=== PATIENT | male | born 1945 | race Caucasian/White ===

== ENCOUNTER 2016-10-12 18:11 | Inpatient (IN) | payer OTHER, MEDICAID ==
[~2016-10-12] VITALS: Ht 162.6 cm; Wt 88.9 kg
[~2016-10-12 18:11] MED LIST: DOCU50CA3 PO; LANS30CA10 PO
[2016-10-12 18:15] VITALS: BP 210/109; PULSE 109; RESP 22; TEMP 98.5; O2SAT 97
--- NOTE | 2016-10-12 18:15 | NUR ---
Placed in room 4. Placed on monitoring analyst, blood pressure machine and pulse oximeter. To gown for exam. Side rails up. Report given to Jv DEAL.
--- NOTE | 2016-10-12 18:18 | NUR ---
ER Dr. Kennedy at bedside examining patient.
[2016-10-12] MEDS ORDERED: cefTRIAXone 1 GM IVPB PREMIX 50 ML IV ONE (18:30)
[2016-10-12] MEDS ORDERED: IPRATROPIUM BROM 0.5 MG/2.5 ML VIAL.NEB (ATROVENT) IH ONE (18:30)
[2016-10-12] MEDS ORDERED: ALBUTEROL SULFATE 0.083% 2.5 MG/3 ML VIAL.NEB IH ONE (18:30)
--- NOTE | 2016-10-12 18:30 | NUR ---
Pt brought in by grey washer complaint of SOB and cough.Pt diminished lung sounds through out.Pt AO x 2, verbal, able to make needs known.Generalized non-pitting edma all extermities noted.
--- NOTE | 2016-10-12 18:35 | NUR ---
Seizure precautions in place. Seizure pads applied to gurney. Side rails up. Seizure pads in place per hx.
[2016-10-12] MEDS ORDERED: ALBMDI INH (18:44)
[2016-10-12] MEDS ORDERED: PROP10DR2 EACH EYE (18:44)
[2016-10-12] MEDS ORDERED: LEVE500T13 PO (18:44)
[2016-10-12] MEDS ORDERED: CALC-226 PO (18:44)
[2016-10-12] MEDS ORDERED: THOR25 PO (18:44)
[2016-10-12] MEDS ORDERED: BIMA2.5D5 OP (18:44)
[2016-10-12] MEDS ORDERED: SOLI5TAB6 PO (18:44)
[2016-10-12] MEDS ORDERED: VALS160T2 PO (18:44)
[2016-10-12] MEDS ORDERED: HYDC.5% TP (18:44)
[2016-10-12] MEDS ORDERED: MULT PO (18:44)
[2016-10-12] MEDS ORDERED: FINA5TAB3 PO (18:44)
[2016-10-12] MEDS ORDERED: IBUP-1969 PO (18:44)
[2016-10-12] MEDS ORDERED: LORA1TAB PO (18:44)
[2016-10-12] MEDS ORDERED: PROC5TAB PO (18:44)
[2016-10-12] MEDS ORDERED: TAMS-11 PO (18:44)
[2016-10-12] MEDS ORDERED: TRIA80OI TP (18:44)
--- NOTE | 2016-10-12 18:44 | NUR ---
Medication reconciliation completed with information provided by paperwork from facility. Any prior medication reconciliation on file was reviewed and corrected.
[2016-10-12] MEDS ORDERED: FUROSEMIDE 100 MG/10 ML VIAL IVP ONE (19:00)
[2016-10-12 19:05] LABS: BASOPHILS # (AUTO) 0.1 K/uL (0.0-0.2); BASOPHILS % (AUTO) 1.1 % (0.0-2.0); EOSINOPHILS # (AUTO) 0.4 K/uL (0.0-0.4); EOSINOPHILS % (AUTO) 3.6 % (0.0-4.0); HEMATOCRIT 45.3 % (36-54); HEMOGLOBIN 15.6 g/dL (14.0-18.0); LYMPHOCYTES # (AUTO) 2.3 K/uL (1.0-5.5); LYMPHOCYTES % (AUTO) 18.9 % (20.5-51.5); MEAN CORPUSCULAR HEMOGLOBIN 29 pg (27-31); MEAN CORPUSCULAR HGB CONC 34 % (32-36); MEAN CORPUSCULAR VOLUME 85 fL (79.0-98.0); MONOCYTES % (AUTO) 8.1 % (1.7-9.3); NEUTROPHILS # (AUTO) 8.1 K/uL (1.8-7.7); NEUTROPHILS % (AUTO) 68.3 % (40.0-70.0); PLATELET COUNT (AUTO) 226 K/uL (130-430); RED BLOOD CELL COUNT(AUTO) 5.34 MIL/uL (4.2-6.2); RED CELL DISTRIBUTION WIDTH 13.4 % (9.0-15.0); WHITE BLOOD COUNT (AUTO) 11.9 K/uL (4.8-10.8)
[2016-10-12 19:16] LABS: CREATININE 1.17 mg/dL (0.55-1.30); POTASSIUM 4.1 mmol/L (3.5-5.1)
[2016-10-12] MEDS: NS 500 ML IV SCH ×2 (19:16→19:32)
--- NOTE | 2016-10-12 19:17 | NUR ---
Endorsed all care SAY Sullivan
[2016-10-12] MEDS ORDERED: DILTIAZEM HCL 25 MG/5 ML VIAL IVP ONE (19:30)
[2016-10-12] MEDS ORDERED: NS 500 ML IV ONE (19:30)
[2016-10-12] MEDS ORDERED: ASPIRIN 81 MG TAB.CHEW PO ONE (19:30)
--- NOTE | 2016-10-12 19:45 | NUR ---
Chacon cath refused by caregiver. Addendum: 10/12/16 at 2014 by LOCURRY Pt's career development specialist did what chacon cath to be insert. # 16 FR Chacon catheter with use of sterile technique. Immediate return of 200 cc clear urine noted. Bedside drainage bag placed below level of bladder. Urine sample collected and sent to lab. Pt tolerated procedure well. Patient unable to toilet self.
[2016-10-12 20:00] LABS: BILIRUBIN,URINE NEGATIVE (NEGATIVE); BLOOD, URINE 2+ (NEGATIVE); CLARITY/URINE HAZY (CLEAR); COLOR,URINE YELLOW (YELLOW); GLUCOSE,URINE NEGATIVE (NEGATIVE); KETONES,URINE NEGATIVE (NEGATIVE); LEUKOCYTE ESTERASE ,URINE 3+ (NEGATIVE); NITRITE, URINE NEGATIVE (NEGATIVE); PROTEIN URINE NEGATIVE (NEGATIVE); UROBILINOGEN,URINE 0.2 (0.2-1.0)
[2016-10-12 20:14] LABS: BACTERIA,URINE MODERATE /HPF (None Seen)
--- NOTE | 2016-10-12 20:25 | NUR ---
ADMISSION NOTE Received patient from ER via gurney under the care of Dr Wood. Patient admitted with diagnosis of Pneumonia. Patient is awake, alert, oriented X4 . Patient oriented to hospital room, call light, toileting, pain management and safety-teach back done. Patient informed that his nurse will be Elisa DEAL and that his room number is 101A. Call light within reach. Will continue to monitor.
--- NOTE | 2016-10-12 20:30 | NUR ---
Patient will be admitted to care of Dr Wood. Admitted to Med/Surg unit. Will go to room 101A. Belongings list completed. Summary report printed. Report given to Henok DEAL .
[2016-10-12 20:32] VITALS: BP 151/90; PULSE 110; RESP 20; TEMP 98.6; O2SAT 95
--- NOTE | 2016-10-12 20:35 | NUR ---
pt.recieved.pt.presents lower exttremity weakness.pt.presents degress exopressive asphasia.mental retardation. chacon catheter.ski intact;redness to backsacrum/coccyx;clean no skin breakdown.iv access x2 :rt.hand/lt.hand. 2 f/u w.iv fluids ivpb;abx. Addendum: 10/13/16 at 0650 by Henok Chang RN o2 sat%=96%@room air.no sob manifested.
[2016-10-12] MEDS ORDERED: LEVOFLOXACIN 500 MG/D5W 100 ML IV ONE ×2 (21:00→21:24)
[2016-10-12] MEDS ORDERED: PIPERACILLIN/TAZO 3.375 GM in NS 50 ML IV ONE (21:00)
[2016-10-12] MEDS ORDERED: PIPERACILLIN/TAZOBACTAM 3.375 GM/VIAL (ZOSYN) IV ONE ×2 (21:24→23:46)
[2016-10-12] MEDS: D5/0.45 NS 1,000 ML IV SCH (21:42)
[2016-10-12] MEDS ORDERED: IPRATROPIUM/ALBUTEROL SULFATE 3 ML AMPUL.NEB INH ONE (22:00)
--- NOTE | 2016-10-12 22:00 | NUR ---
pt.repsoitoned.iv lock:iv extention applied 2 rt.hand/lt hand.pt prersents quiescent affect.calm,asleep. Addendum: 10/13/16 at 0651 by Henok Chang RN o2 sat%=96%@room air.no sob manifested. Addendum: 10/13/16 at 0654 by Henok Chang RN iv fluids:d5/45ns @75ml/hr initiated.initial ivpb:abx:beatrice rivas.
[2016-10-12 22:30] VITALS: BP 160/76; PULSE 116
[2016-10-12 23:59] VITALS: BP 156/90; PULSE 98; RESP 18; TEMP 97.5; O2SAT 94
--- NOTE | 2016-10-13 | NUR ---
pt.assessed.pt.repositioned.iv fluids infusing.abx:infused.call light placed w/in pt's reach. Addendum: 10/13/16 at 0649 by Henok Chang RN o2 sat%=96%@room air.no sob manifested.
--- NOTE | 2016-10-13 02:00 | NUR ---
pt.assessed.pt.repositioned.iv fluids infusing.call light placed w/in pt's reach.no distress/discomfort manifested. call light placed w/in pt's reach.
--- NOTE | 2016-10-13 04:00 | NUR ---
pt.repsoitioned.v/s assessed:values w/in normal values:zosyn:abx/ivpb administered.rodriguez light placed w/in pt's reach. no distress/discomfort manifested.call light placed w/in pt's reach. Addendum: 10/13/16 at 0649 by Henok Chang RN o2 sat %=96% @ room air. Addendum: 10/13/16 at 0650 by Henok Chang RN no sob manifested.
[2016-10-13 04:08] VITALS: BP 142/79; PULSE 87; RESP 18; TEMP 97.2; O2SAT 94
[2016-10-13] MEDS: PIPERACILLIN/TAZO 3.375/DEX-IS 50 ML IV SCH ×4 (04:40→22:03)
[2016-10-13] MEDS: IPRATROPIUM/ALBUTEROL SULFATE 3 ML AMPUL.NEB INH SCH ×5 (06:01→23:00)
--- NOTE | 2016-10-13 06:15 | NUR ---
pt.assessed.pt.repositioned.no distress/discomfort manifested.iv fluids infusing.call light placed w/in pt's reach.
[2016-10-13 07:17] LABS: BASOPHILS # (AUTO) 0.1 K/uL (0.0-0.2); BASOPHILS % (AUTO) 1.2 % (0.0-2.0); EOSINOPHILS # (AUTO) 0.3 K/uL (0.0-0.4); EOSINOPHILS % (AUTO) 2.9 % (0.0-4.0); HEMATOCRIT 40.5 % (36-54); HEMOGLOBIN 13.4 g/dL (14.0-18.0); LYMPHOCYTES # (AUTO) 1.7 K/uL (1.0-5.5); LYMPHOCYTES % (AUTO) 18.6 % (20.5-51.5); MEAN CORPUSCULAR HEMOGLOBIN 29 pg (27-31); MEAN CORPUSCULAR HGB CONC 33 % (32-36); MEAN CORPUSCULAR VOLUME 87 fL (79.0-98.0); MONOCYTES % (AUTO) 11.3 % (1.7-9.3); PLATELET COUNT (AUTO) 225 K/uL (130-430); RED BLOOD CELL COUNT(AUTO) 4.65 MIL/uL (4.2-6.2); RED CELL DISTRIBUTION WIDTH 13.4 % (9.0-15.0); WHITE BLOOD COUNT (AUTO) 9.1 K/uL (4.8-10.8)
[2016-10-13 07:27] LABS: CALCIUM 8.3 mg/dL (8.4-11.0); POTASSIUM 3.5 mmol/L (3.5-5.1)
[2016-10-13 07:28] LABS: ALBUMIN 3.1 g/dL (3.4-4.8); CREATININE 1.13 mg/dL (0.55-1.30); TOTAL BILIRUBIN 0.4 mg/dL (0.0-1.0)
[2016-10-13 08:00] VITALS: BP 122/97; PULSE 90; RESP 19; TEMP 96.8; O2SAT 97
--- NOTE | 2016-10-13 08:00 | NUR ---
initial notes rec patient asleep but arousable to stimuli.pt with mental retardation but very pleasant. awake alert with hob slightly elevated. resp easy and unlabored with o2 at 2 liters via nasal cannula.no sob noted. bed in low position and side rails up and locked. call light within reached and knows when to call for assistance.
[2016-10-13] MEDS ORDERED: LORazepam 1 MG TABLET PO SCH (09:00)
--- NOTE | 2016-10-13 10:00 | NUR ---
rounds due meds was crushed and given to patient with pudding and ashley well. no sob noted. turned repositioned for comfort.
[2016-10-13] MEDS: MULTIVITAMINS TAB 1 TABLET PO SCH (10:05)
[2016-10-13] MEDS: DOCUSATE SODIUM 100 MG CAPSULE PO SCH (10:06)
[2016-10-13] MEDS: PANTOPRAZOLE SODIUM 40 MG TAB PO SCH (10:06)
[2016-10-13] MEDS: levETIRAcetam 500 MG TABLET PO SCH ×2 (10:06→21:55)
[2016-10-13] MEDS: OXYBUTYNIN CHLORIDE 5 MG TABLET PO SCH ×3 (10:06→22:03)
[2016-10-13] MEDS: THORAZINE (chlorproMAZINE) 25 MG TAB PO SCH ×2 (10:06→21:55)
[2016-10-13] MEDS: CALCIUM CARBONATE/VITAMIN D3 1 TAB TABLET PO SCH (10:06)
[2016-10-13] MEDS: VALSARTAN 160 MG TABLET (DIOVAN) PO SCH (10:07)
[2016-10-13] MEDS: PROCHLORPERAZINE MALEATE 5 MG TABLET PO SCH (10:08)
--- NOTE | 2016-10-13 10:24 | NUR ---
Nutrition Update Donnie Scale 12 noted. Pt admitted for pneumonia. Diet: mechanical soft BMI: 33.7 kg/m2 RD to follow per nutrition care standards.
[2016-10-13 11:57] VITALS: Ht 162.6 cm; Wt 88.9 kg
--- NOTE | 2016-10-13 12:00 | NUR ---
rounds was fed [facility] [place] [facility] and with good appetite. due meds given. no acute distress noted.
[2016-10-13 12:02] VITALS: BP 118/65; PULSE 107; RESP 18; TEMP 97.9; O2SAT 93
--- NOTE | 2016-10-13 14:00 | NUR ---
rounds sleeping when rounds made. no sob noted.
[2016-10-13] MEDS: FINASTERIDE 5 MG TABLET (PROSCAR) PO SCH (14:18)
[2016-10-13] MEDS: D5/0.45 NS 1,000 ML IV SCH (14:21)
--- NOTE | 2016-10-13 15:56 | NUR ---
SMirtaT. SWALLOW SMILEYAL COMPLETED THIS AM. PT PRESENTS W/ ML-MOD ORAL DYSPHAGIA W/ PROLONGED MASTICATION D/T SCATTERED DENTITION. NO S/S OF ASPIRATION. REC: [facility] SOFT FINELY CHOPPED DIET. NURSE BROCK NOTIFIED. [id number] CJ [id number] CJ [id number] CJ NOMS LEVEL 5
--- NOTE | 2016-10-13 16:00 | NUR ---
rounds seen by dr bianchi and with orders. sleeps at intervals. no acute distress noted.
[2016-10-13 16:28] VITALS: BP 160/76; PULSE 106; RESP 20; TEMP 98.7; O2SAT 98
--- NOTE | 2016-10-13 17:19 | NUR ---
Nutrition Consult Nutrition Consult (Donnie Score of 12) received 10/13/16 2016. Pt was seen and assessed by RD on 10/13/16. Please see Nutrition Assessment for details. RD to continue to follow per nutrition care standards.
[2016-10-13] MEDS: TEARS ARTIFICIAL 15 ML DROPS OP SCH ×2 (17:45→21:54)
--- NOTE | 2016-10-13 18:40 | NUR ---
closing notes pt was fed and with a good appetite. no sob noted. needs attended, stable. bed in low position and side rails up and locked.
--- NOTE | 2016-10-13 19:10 | NUR ---
OPENING NOTES REPORT RECEIVED FROM DAY SHIFT NURSE AT BEDSIDE. NO SIGNS OR SYMPTOMS OF DISTRESS NOTED, PATIENT RESTING COMFORTABLY. BED IN LOWEST POSITION, BED ALARM ON, CALL LIGHT WITHIN REACH WILL CONTINUE TO MONITOR.
[2016-10-13 19:45] VITALS: BP 147/73; PULSE 105; RESP 20; TEMP 98.8; O2SAT 97
--- NOTE | 2016-10-13 19:45 | NUR ---
CT PATIENT TAKEN TO CT
--- NOTE | 2016-10-13 20:22 | NUR ---
RETURN FROM CT PATIENT RETURNED FROM CT. PATIENT RESTING COMFORTABLY. BED IN LOWEST POSITION. ALARM ON, CALL LIGHT WITHIN REACH. WILL CONTINUE TO MONITOR.
[2016-10-13] MEDS: LATANOPROST 2.5 ML DROPS (XALATAN) OP SCH (21:00)
[2016-10-13] MEDS ORDERED: COMMUNICATION ORDER XX ONE (21:00)
[2016-10-13] MEDS: TAMSULOSIN HCL 0.4 MG CAP PO SCH (21:55)
[2016-10-13] MEDS: LORazepam 1 MG TABLET PO SCH (22:02)
--- NOTE | 2016-10-13 22:30 | NUR ---
D/C MATA CATHETER 10CC FLUID REMOVED FROM BALLOON, MATA CATHETER D/C PER ORDERS. NO COMPLICATIONS NOTED AT THIS TIME. PATIENT TOLERATED WELL. URINAL AT BEDSIDE, PATIENT VERBALIZED WILL CALL FOR HELP TO HOLD THE URINAL. WILL MONITOR FOR URINE OUTPUT.
[2016-10-13] MEDS: LEVOFLOXACIN 500 MG/D5W 100 ML IV SCH (22:38)
--- NOTE | 2016-10-13 23:30 | NUR ---
SEIZURE PRECAUTIONS SEIZURE PADDING PUT IN PLACE, SUCTION CANISTER WITH YONKER AT BEDSIDE IN WORKING ORDER.
[2016-10-14 00:48] VITALS: BP 133/85; PULSE 107; RESP 16; TEMP 98; O2SAT 94
--- NOTE | 2016-10-14 01:30 | NUR ---
ROUNDS PATIENT SLEEPING, VISIBLE RISE AND FALL OF CHEST. NO SIGNS OR SYMPTOMS OF DISTRESS NOTED. BED IN LOWEST POSITION, BED ALARM ON, CALL LIGHT WITHIN REACH. FALL, SEIZURE, AND ASPIRATION PRECAUTIONS IN PLACE. WILL CONTINUE TO MONITOR
--- NOTE | 2016-10-14 02:47 | NUR ---
voided assisted pt with urinal. pt voided 260 yellow urine. will continue to monitor. all needs being met. bed in low position, call light within reach.
[2016-10-14] MEDS: IPRATROPIUM/ALBUTEROL SULFATE 3 ML AMPUL.NEB INH SCH ×6 (03:00→23:32)
[2016-10-14 04:00] VITALS: BP 106/56; PULSE 89; RESP 18; TEMP 97; O2SAT 95
[2016-10-14] MEDS: PIPERACILLIN/TAZO 3.375/DEX-IS 50 ML IV SCH ×4 (04:29→21:56)
--- NOTE | 2016-10-14 04:36 | NUR ---
ROUNDS PATIENT ASSISTED WITH URINAL, PATIENT VOIDED 50ML URINE. BED IN LOWEST POSITION, CALL LIGHT WITHIN REACH, BED ALARM ON.
--- NOTE | 2016-10-14 05:30 | NUR ---
VOIDED NOTED PT VOIDED ON HIS GOWN WHILE TRYING TO REACH URINAL. I ASSISTED HIM TO THE URINAL AND WAS ABLE TO COLLECT 100ML. CHANGED PT'S WET GOWN AND BLANKET. ALL NEEDS BEING MET.
--- NOTE | 2016-10-14 06:27 | NUR ---
CLOSING NOTES PATIENT RESTING COMFORTABLY. NO SIGNS OR SYMPTOMS OF DISTRESS NOTED. SEIZURE, FALL, AND ASPIRATION PRECAUTIONS IN PLACE. ALL NEEDS MET THROUGH SHIFT. BED IN LOWEST POSITION, BED ALARM ON, CALL LIGHT WITHIN REACH. WILL ENDORSE CARE TO DAY SHIFT NURSE.
[2016-10-14] MEDS: D5/0.45 NS 1,000 ML IV SCH ×2 (06:57→13:15)
--- NOTE | 2016-10-14 06:59 | NUR ---
VOIDED ASSISTED PATIENT AT BEDSIDE WITH URINAL, OUTPUT 220ML.
[2016-10-14 08:00] VITALS: BP 120/60; PULSE 98; RESP 18; TEMP 96; O2SAT 97
--- NOTE | 2016-10-14 08:00 | NUR ---
initial notes rec patient awake and with hob elevated. ivf infusing well on the l hand. no infiltration noted. obese resp easy and unlabored. with o2 at 2 liters via nasal cannula. bed in low position and side rail up and locked. call light provided and knows when to call for help.
[2016-10-14] MEDS: DOCUSATE SODIUM 100 MG CAPSULE PO SCH (09:51)
[2016-10-14] MEDS: THORAZINE (chlorproMAZINE) 25 MG TAB PO SCH ×2 (09:51→20:51)
[2016-10-14] MEDS: levETIRAcetam 500 MG TABLET PO SCH ×2 (09:51→20:51)
[2016-10-14] MEDS: PANTOPRAZOLE SODIUM 40 MG TAB PO SCH (09:51)
[2016-10-14] MEDS: MULTIVITAMINS TAB 1 TABLET PO SCH (09:51)
[2016-10-14] MEDS: PROCHLORPERAZINE MALEATE 5 MG TABLET PO SCH (09:52)
[2016-10-14] MEDS: LORazepam 1 MG TABLET PO SCH ×2 (09:52→20:54)
[2016-10-14] MEDS: TRIAMCINOLONE ACETONIDE 0.1% 15 GM CREAM.GM. TP SCH ×2 (09:53→20:51)
[2016-10-14] MEDS: TEARS ARTIFICIAL 15 ML DROPS OP SCH ×3 (09:54→20:52)
--- NOTE | 2016-10-14 10:00 | NUR ---
rounds seen by dr arias orozco and with orders. no sob noted.
--- NOTE | 2016-10-14 10:00 | NUR ---
Rounds and IV reinsertion A/O x 3, no SOB, no chest pain, denied pain. Skin warm to touch, noted IV at L hand got pullout, and R hand infiltrated. Started a new IV #22 at R FA with good blood return. DC IV from R hand, both IV catheters intact. Patient tolerated whole procedure well. Patient resting in bed. Side rail padded, bed at lowest position, call light within reach, will continue to monitor patient. Addendum: 10/15/16 at 0021 by Sebastian Meza RN wrong time entry. EDUIN DEAL
[2016-10-14] MEDS: FINASTERIDE 5 MG TABLET (PROSCAR) PO SCH (10:04)
[2016-10-14] MEDS: CALCIUM CARBONATE/VITAMIN D3 1 TAB TABLET PO SCH (10:05)
[2016-10-14] MEDS: OXYBUTYNIN CHLORIDE 5 MG TABLET PO SCH ×3 (10:05→20:51)
--- NOTE | 2016-10-14 12:00 | NUR ---
rounds pt was assisted with the urinal and ashley well. wets the bed at intervals and total bed changed done. pt ate and with good appetite. no acute distress noted.
[2016-10-14 12:27] VITALS: BP 140/94; PULSE 80; RESP 17; TEMP 97.1; O2SAT 100
[2016-10-14] MEDS: VALSARTAN 160 MG TABLET (DIOVAN) PO SCH (13:01)
--- NOTE | 2016-10-14 13:28 | NUR ---
Consultation Dr Sánchez is allocations clerk for Dr Yeboah, Spoke to Tg at the exchange
--- NOTE | 2016-10-14 14:00 | NUR ---
rounds complete bed changed was done , incontinent of urine. keep patient dry and clean. no sob noted.
--- NOTE | 2016-10-14 16:00 | NUR ---
rounds sputum was sent to lab for c/s. turned repositoned for comfort. family visited patient. no acute distress noted.
[2016-10-14 16:48] VITALS: BP 133/79; PULSE 101; RESP 17; TEMP 97.8; O2SAT 98
--- NOTE | 2016-10-14 18:30 | NUR ---
closing notes endorsed to night nurse re dr portillo was called for follow up consult as per dr bianchi this am. no acute distress, having a breathing tx at this time. no sob noted.
[2016-10-14 19:53] VITALS: BP 114/60; PULSE 112; RESP 18; TEMP 99.2; O2SAT 92
--- NOTE | 2016-10-14 20:30 | NUR ---
Initial note A/O x 3, no SOB, no chest pain, denied pain. Fast heart rate (112), after breathing treatment given, patient denied palpitation. Skin warm to touch, IV at bilateral hands. Diminished lung sounds at bilateral lower lobes. Active bowel sounds, distended abdomen. Voided 300 ml clear yellow urine in the urinal. Patient's able to move bilateral arms, but unable to move lower legs. +2 radial and pedal pulses, no edema noted. Side rail padded, bed at lowest position, call light within reach, will continue to monitor patient.
[2016-10-14] MEDS: LEVOFLOXACIN 500 MG/D5W 100 ML IV SCH (20:47)
[2016-10-14] MEDS: TAMSULOSIN HCL 0.4 MG CAP PO SCH (20:51)
[2016-10-14] MEDS: LATANOPROST 2.5 ML DROPS (XALATAN) OP SCH (21:00)
--- NOTE | 2016-10-14 22:00 | NUR ---
Rounds and IV reinsertion A/O x 3, no SOB, no chest pain, denied pain. Skin warm to touch, noted IV at L hand got pullout, and R hand infiltrated. Started a new IV #22 at R FA with good blood return. DC IV from R hand, both IV catheters intact. Patient tolerated whole procedure well. Patient resting in bed. Side rail padded, bed at lowest position, call light within reach, will continue to monitor patient.
[2016-10-15] VITALS (7 sets, daily range): BP systolic 112–145; BP diastolic 71–89; PULSE 74–102; RESP 16–18; TEMP 96.4–98.3; O2SAT 95–100
--- NOTE | 2016-10-15 00:15 | NUR ---
Rounds Patient resting in bed, no SOB, no chest pain, no facial grimacing. Skin warm to touch. IV at R FA, patent, free of infection or infiltration. Continued D5 1/2 NS at 75 ml/hr. Reposition patient Q2H. Side rail padded, bed at lowest position, call light within reach, will continue to monitor patient.
[2016-10-15] MEDS: D5/0.45 NS 1,000 ML IV SCH ×2 (01:53→15:55)
--- NOTE | 2016-10-15 02:05 | NUR ---
Rounds Resting/sleeping in bed, no SOB, no chest pain, no facial grimacing. Skin warm to touch. IV at R FA, patent, continued D5 1/2 NS at 75 ml/hr. Reposition patient Q2H. Side rail padded, bed at lowest position, call light within reach, will continue to monitor patient.
[2016-10-15] MEDS: PIPERACILLIN/TAZO 3.375/DEX-IS 50 ML IV SCH ×3 (03:29→15:12)
--- NOTE | 2016-10-15 04:00 | NUR ---
Rounds Awake, watching TV in bed, no SOB, no chest pain, denied pain. Skin warm to touch. IV at R FA, patent, Zosyn ongoing. Reposition patient Q2H. Assisted patient use urinal and gown changed. Pericare provided. Side rail padded, bed at lowest position, bed alarm on, call light within reach, will continue to monitor patient.
[2016-10-15] MEDS: IPRATROPIUM/ALBUTEROL SULFATE 3 ML AMPUL.NEB INH SCH ×4 (04:28→15:00)
--- NOTE | 2016-10-15 06:10 | NUR ---
Closing note Resting/sleeping in bed. No SOB, no chest pain, no grimacing. IV at R FA, patent, continued D5 1/2 NS @ 75 ml/hr. Reposition patient Q2H. Side rail padded, bed at lowest position, bed alarm on, call light within reach, will give report to incoming nurse.
[2016-10-15 07:20] LABS: BASOPHILS # (AUTO) 0.1 K/uL (0.0-0.2); BASOPHILS % (AUTO) 0.7 % (0.0-2.0); EOSINOPHILS # (AUTO) 0.7 K/uL (0.0-0.4); EOSINOPHILS % (AUTO) 9.4 % (0.0-4.0); HEMATOCRIT 40.3 % (36-54); HEMOGLOBIN 13.4 g/dL (14.0-18.0); LYMPHOCYTES # (AUTO) 1.9 K/uL (1.0-5.5); LYMPHOCYTES % (AUTO) 24.4 % (20.5-51.5); MEAN CORPUSCULAR HEMOGLOBIN 29 pg (27-31); MEAN CORPUSCULAR HGB CONC 33 % (32-36); MEAN CORPUSCULAR VOLUME 88 fL (79.0-98.0); MONOCYTES # (AUTO) 0.9 K/uL (0.0-1.0); NEUTROPHILS # (AUTO) 4.2 K/uL (1.8-7.7); NEUTROPHILS % (AUTO) 53.5 % (40.0-70.0); PLATELET COUNT (AUTO) 208 K/uL (130-430); RED BLOOD CELL COUNT(AUTO) 4.59 MIL/uL (4.2-6.2); RED CELL DISTRIBUTION WIDTH 13.5 % (9.0-15.0); WHITE BLOOD COUNT (AUTO) 7.9 K/uL (4.8-10.8)
--- NOTE | 2016-10-15 07:20 | NUR ---
INITIAL NOTE RECEIVED PATIENT FROM CARPENTER HELPER MAINTENANCE NURSE, PATIENT IS AWAKE WATCHING TV, NO COMPLAINTS OF PAIN, NO SIGNS OF DISTRESS, ASSESSMENT COMPLETE, PATIENT IN ON O2 AT 2L NC, PATIENT HAS IV IN RIGHT HAND WITH FLUIDS INFUSING, NO SIGNS OF INFILTRATION NOTED, PATIENT IS ABLE TO USE URINAL, HEELS ELEVATED, WILL CONTINUE TO TURN PATIENT EVERY TWO HOURS, HOB ELEVATED, PADDED SIDE RAILS, BED IN LOWEST POSITION, CALL FU IN PATIENT'S HAND, BED ALARM ON, FALL, ASPIRATION, SEIZURE PRECAUTIONS IN PLACE, WILL CONTINUE TO MONITOR PATIENT.
[2016-10-15 07:31] LABS: ALBUMIN 3.4 g/dL (3.4-4.8); CREATININE 1.12 mg/dL (0.55-1.30); POTASSIUM 3.8 mmol/L (3.5-5.1); TOTAL BILIRUBIN 0.7 mg/dL (0.0-1.0); TOTAL PROTEIN, SERUM 7.4 g/dL (6.4-8.3)
[2016-10-15] MEDS: MULTIVITAMINS TAB 1 TABLET PO SCH (08:04)
[2016-10-15] MEDS: OXYBUTYNIN CHLORIDE 5 MG TABLET PO SCH ×2 (08:04→15:12)
[2016-10-15] MEDS: levETIRAcetam 500 MG TABLET PO SCH (08:04)
[2016-10-15] MEDS: PANTOPRAZOLE SODIUM 40 MG TAB PO SCH (08:04)
[2016-10-15] MEDS: CALCIUM CARBONATE/VITAMIN D3 1 TAB TABLET PO SCH (08:05)
[2016-10-15] MEDS: FINASTERIDE 5 MG TABLET (PROSCAR) PO SCH (08:05)
[2016-10-15] MEDS: LORazepam 1 MG TABLET PO SCH (08:05)
[2016-10-15] MEDS: DOCUSATE SODIUM 100 MG CAPSULE PO SCH (08:05)
[2016-10-15] MEDS: THORAZINE (chlorproMAZINE) 25 MG TAB PO SCH (08:05)
--- NOTE | 2016-10-15 08:05 | NUR ---
MEDICATIONS PATIENT GIVEN MORNING MEDICATIONS, EDUCATED PATIENT ON POTENTIAL SIDE EFFECTS, PATIENT VERBALIZED UNDERSTANDING, PATIENT STATES HE HAS NO OTHER NEEDS AT THIS TIME, HOB ELEVATED, PADDED SIDE RAILS, BED IN LOWEST POSITION, CALL FU IN PATIENT'S HAND, BED ALARM ON, FALL, ASPIRATION, SEIZURE PRECAUTIONS IN PLACE, WILL CONTINUE TO MONITOR PATIENT.
[2016-10-15] MEDS: TRIAMCINOLONE ACETONIDE 0.1% 15 GM CREAM.GM. TP SCH (08:06)
[2016-10-15] MEDS: TEARS ARTIFICIAL 15 ML DROPS OP SCH ×2 (08:06→15:12)
[2016-10-15] MEDS: VALSARTAN 160 MG TABLET (DIOVAN) PO SCH (08:06)
[2016-10-15] MEDS: PROCHLORPERAZINE MALEATE 5 MG TABLET PO SCH (08:09)
--- NOTE | 2016-10-15 10:30 | NUR ---
RN ROUNDS PATIENT IS CURRENTLY RESTING IN BED, NO SIGNS OF DISTRESS, PATIENT HAS NO COMPLAINTS OF PAIN, ASSISTED PATIENT TO USE URINAL, INSTRUCTED PATIENT TO USE CALL FU IF ASSISTANCE IS NEEDED PATIENT VERBALIZED UNDERSTANDING, HOB ELEVATED, PADDED SIDE RAILS, BED IN LOWEST POSITION, CALL FU IN PATIENT'S HAND, BED ALARM ON, FALL, ASPIRATION, SEIZURE PRECAUTIONS IN PLACE, WILL CONTINUE TO MONITOR PATIENT.
--- NOTE | 2016-10-15 12:05 | NUR ---
RN ROUNDS PATIENT IS CURRENTLY RESTING IN BED GETTING A BREATHING TREATMENT, PATIENT IS TOLERATING WELL, PATIENT HAS NO COMPLAINTS OF PAIN, NO SIGNS OF DISTRESS, HOB ELEVATED, BED IN LOWEST POSITION, BED ALARM ON, TWO SIDE RAILS UP, FALL, ASPIRATION, SEIZURE PRECAUTIONS IN PLACE, WILL CONTINUE TO MONITOR PATIENT
--- NOTE | 2016-10-15 14:10 | NUR ---
RN ROUNDS PATIENT IS RESTING IN BED WATCHING TV, NO COMPLAINTS OF PAIN OR DISCOMFORT, NO SIGNS OF DISTRESS, ASSISTED PATIENT TO USE BED GOLDSTEIN, NO OTHER NEEDS AT THIS TIME, HOB ELEVATED, BED IN LOWEST POSITION, BED ALARM ON, SIDE RAILS UP, FALL, ASPIRATION, SEIZURE PRECAUTIONS IN PLACE, WILL CONTINUE TO MONITOR
[2016-10-15] MEDS ORDERED: SULF1TAB48 PO (14:15)
--- NOTE | 2016-10-15 16:30 | NUR ---
RN ROUNDS PATIENT IS RESTING IN BED WATCHING TV, NO COMPLAINTS OF PAIN OR DISCOMFORT, NO SIGNS OF DISTRESS, ASSISTED PATIENT TO USE URINAL,BROTHER AND [employer] IS AT BESIDE, BROTHER MADE AWARE THAT PATIENT IS BEING DISCHARGED BACK TO [facility], PATIENT'S HOB IS ELEVATED, BED IN LOWEST POSITION, BED ALARM ON, SIDE RAILS UP, FALL, ASPIRATION, SEIZURE PRECAUTIONS IN PLACE, WILL CONTINUE TO MONITOR
--- NOTE | 2016-10-15 18:45 | NUR ---
D/C Patient Patient given medication reconciliation form and D/C instructions. Exit Care provided. Patient verbalized understanding. MD discussed with patient the results and treatment provided. Ambulatory with steady gait for discharge to home. Patient in stable condition, ID band removed. IV catheter removed, intact and dressing applied, no active bleeding. Rx of Baclofen given. Patient educated on pain management. All belongings sent with patient.
--- NOTE | 2016-10-23 14:44 | NUR ---
Discharge Follow Up Phone Call SAW SUPERINTENDENT phoned patient's caregiver, Sussy [phone]. She stated patient has been doing fine back at [facility]. Patient's prescription has been filled and patient saw his PCP at the facility. Sussy had no questions or concerns.
== END 2016-10-15 18:45 | disposition home or self-care (01) | DRG 177 ==
LOC: SED 18:11 → STU 19:58 → SMU 20:11
PROVIDERS: ADMIT Internal Medicine; ATTEND Internal Medicine
DX: J69.0 Pneumonitis due to inhalation of food and vomit (principal); J96.00 Acute respiratory failure, unspecified whether with hypoxia or hypercapnia; N39.0 Urinary tract infection, site not specified; T17.920A Food in respiratory tract, part unspecified causing asphyxiation, initial encounter; F29 Unspecified psychosis not due to a substance or known physiological condition; G40.909 Epilepsy, unspecified, not intractable, without status epilepticus; G80.9 Cerebral palsy, unspecified; I10 Essential (primary) hypertension; J45.909 Unspecified asthma, uncomplicated; N40.0 Benign prostatic hyperplasia without lower urinary tract symptoms; M19.90 Unspecified osteoarthritis, unspecified site; B95.1 Streptococcus, group B, as the cause of diseases classified elsewhere; F79 Unspecified intellectual disabilities; X58.XXXA Exposure to other specified factors, initial encounter; Y93.89 Activity, other specified; Y92.89 Other specified places as the place of occurrence of the external cause; Y99.8 Other external cause status; Z79.899 Other long term (current) drug therapy
CPT/HCPCS: 36415; 71010; 71250-TC; 80048; 80053; 81000-TC; 83605; 83880; 84484; 85025; 87040-TC; 87086; 87205-TC; 92610-GN; 93005; 94640; 94760; 96361; 96365; 96375; 99285; J0696; J1940; J1956; J2543; J7040; J7050; Q0161; Q0164

== ENCOUNTER 2016-10-31 16:54 | Inpatient (IN) | payer OTHER, MEDICAID ==
[~2016-10-31] VITALS: Ht 162.6 cm; Wt 80.7 kg
[~2016-10-31 16:54] MED LIST changes: +ALBMDI INH; +BIMA2.5D5 OP; +CALC-226 PO; +FINA5TAB3 PO; +HYDC.5% TP; +IBUP-1969 PO; +LEVE500T13 PO; +LORA1TAB PO; +MULT PO; +PROC5TAB PO; +PROP10DR2 EACH EYE; +SOLI5TAB6 PO; +SULF1TAB48 PO; +TAMS-11 PO; +THOR25 PO; +TRIA80OI TP; +VALS160T2 PO
--- NOTE | 2016-10-31 16:57 | NUR ---
Patient to ER bed 6 to gown for evaluation. Side rails up. Report given to Fran DEAL.
[2016-10-31 16:58] VITALS: BP_SYST 144
--- NOTE | 2016-10-31 16:58 | NUR ---
ER Dr. Sun at bedside examining patient.
[2016-10-31] MEDS ORDERED: IPRATROPIUM/ALBUTEROL SULFATE 3 ML AMPUL.NEB INH ONE (17:00)
[2016-10-31] MEDS ORDERED: methylPREDNISolone SOD SUCC/PF 62.5 MG/ML VIAL IVP ONE (17:00)
--- NOTE | 2016-10-31 17:00 | NUR ---
PT SENT FROM [facility] history of Cerebral Palsy brought in by EMS for a 4-5 day history of constant, severe cough. The patient's tile decorator at bedside reports the patient was seen here a few weeks ago for pneumonia and has been taking his antibiotics. The patient's tile decorator states he called Dr. Amador who advised him to bring the patient here for admission and retail receiving clerk evaluation. 3D Modeler states the patient has been using his inhaler at home with no relief.
--- NOTE | 2016-10-31 17:30 | NUR ---
MEDICATIONS ADMINISTERED. PT TOLERATED WELL. WILL CONTINUE TO MONITOR
--- NOTE | 2016-10-31 17:50 | NUR ---
Medication reconciliation completed with information provided by FACILITY. Any prior medication reconciliation on file was reviewed and corrected.
[2016-10-31 18:13] LABS: BASOPHILS % (AUTO) 0.3 % (0.0-2.0); EOSINOPHILS # (AUTO) 0.1 K/uL (0.0-0.4); EOSINOPHILS % (AUTO) 0.8 % (0.0-4.0); HEMATOCRIT 40.7 % (36-54); HEMOGLOBIN 13.4 g/dL (14.0-18.0); LYMPHOCYTES # (AUTO) 2.8 K/uL (1.0-5.5); LYMPHOCYTES % (AUTO) 25.3 % (20.5-51.5); MEAN CORPUSCULAR HEMOGLOBIN 29 pg (27-31); MEAN CORPUSCULAR HGB CONC 33 % (32-36); MEAN CORPUSCULAR VOLUME 87 fL (79.0-98.0); MONOCYTES # (AUTO) 1.2 K/uL (0.0-1.0); MONOCYTES % (AUTO) 10.5 % (1.7-9.3); NEUTROPHILS % (AUTO) 63.1 % (40.0-70.0); PLATELET COUNT (AUTO) 301 K/uL (130-430); RED BLOOD CELL COUNT(AUTO) 4.69 MIL/uL (4.2-6.2); RED CELL DISTRIBUTION WIDTH 13.1 % (9.0-15.0); WHITE BLOOD COUNT (AUTO) 11.1 K/uL (4.8-10.8)
--- NOTE | 2016-10-31 18:20 | NUR ---
PT MEDICATED W/ABX.PT TOLERATED WELL.
[2016-10-31] MEDS ORDERED: cefTRIAXone 1 GM IVPB PREMIX 50 ML IV ONE (18:30)
[2016-10-31 18:32] LABS: INR 1.1 (0.80-1.20); PROTHROMBIN TIME 11.6 SECS (9.5-12.5)
[2016-10-31 18:39] LABS: ANION GAP 5 (5-15); CALCIUM 8.9 mg/dL (8.4-11.0); CHLORIDE 99 mmol/L (98-107); CREATININE 1.26 mg/dL (0.55-1.30); GLUCOSE 120 mg/dL (70-99); POTASSIUM 4.1 mmol/L (3.5-5.1); SODIUM SERUM 133 mmol/L (136-145); UREA NITROGEN, BLOOD 24 mg/dL (8-21)
[2016-10-31 18:44] LABS: ALANINE AMINOTRANSFERASE 37 U/L (12-78); ALBUMIN 3.3 g/dL (3.4-4.8); ASPARTATE AMINOTRANSFERASE 25 U/L (10-37); TOTAL BILIRUBIN 0.2 mg/dL (0.0-1.0); TOTAL PROTEIN, SERUM 7.5 g/dL (6.4-8.3)
--- NOTE | 2016-10-31 19:20 | NUR ---
Patient will be admitted to care of . Admitted to MED/SURG unit. Will go to room 105A. Summary report printed. Report given to ADMISSION RN.
--- NOTE | 2016-10-31 19:31 | NUR ---
Admission Note Received patient from ER with diagnosis of Aspiration PNA. Initial Plan of Care discussed-patient verbalized understanding. Oriented to room, call light, pain management and safety.
[2016-10-31 19:34] VITALS: BP_SYST 136
--- NOTE | 2016-10-31 19:56 | NUR ---
Initial Notes Patient alert and oriented x 3, able to make needs known. Patient denies pain at this time. No SOB noted, on room air. Denies nausea/vomiting at this time. IV site patent, flushes well. Safety precautions in place. Goal of pain management, resp stability and safety this shift. Call light within reach. Will continue to monitor.
[2016-10-31] MEDS ORDERED: PIPERACILLIN/TAZOBACTAM 3.375 GM/VIAL (ZOSYN) IV ONE (21:06)
--- NOTE | 2016-10-31 22:10 | NUR ---
Notes Patient resting in bed. No s/s of pain or discomfort noted. No SOB noted. IV site patent, flushes well. Patient repositioned in bed. Will continue to monitor.
[2016-11-01] VITALS (7 sets, daily range): BP systolic 114–137
--- NOTE | 2016-11-01 00:10 | NUR ---
Notes Patient sleeping at this time. No s/s of pain or discomfort noted. No SOB noted. IV site patent, flushes well. Afebrile. Will continue to monitor.
[2016-11-01] MEDS: PIPERACILLIN/TAZO 3.375/DEX-IS 50 ML IV SCH ×3 (01:30→12:13)
--- NOTE | 2016-11-01 04:15 | NUR ---
Notes Patient sleeping at this time. No s/s of pain or discomfort noted. No SOB noted. IV site patent, flushes well. Afebrile. Will continue to monitor.
--- NOTE | 2016-11-01 06:46 | NUR ---
Closing Notes Patient denies pain at this time. No SOB noted, on room air. Denies nausea/vomiting at this time. IV site patent, flushes well. Goal of pain management, resp stability and safety met. Call light within reach. Will continue to monitor.
--- NOTE | 2016-11-01 07:49 | NUR ---
Consult Order received for a consult with Dr Yeboah for PNA. Call was placed to his office [phone], spoke with Oly at the exchange. Will follow up as needed.
--- NOTE | 2016-11-01 08:15 | NUR ---
INITIAL NOTE PT IN SEMI FOWLERS POSITION, ALERT AND ORIENTED X3, VSS, NO S/S OF DISTRESS OR COMPLAINT OF PAIN, ABLE TO MAKE NEEDS KNOWN, IV TO LEFT WRIST INTACT, SALINE LOCKED, NO S/S OF INFILTRATION NOTED, REVIEWED PLAN OF CARE WITH PATIENT, PT VERBALIZED UNDERSTANDING, SEIZURE AND SAFETY MEASURES IN PLACE, PT REORIENTED TO USE OF CALL LIGHT AND IT IS PLACED WITHIN REACH, BED IN LOW POSITION AND LOCKED, WILL CONTINUE TO MONITOR
[2016-11-01 08:36] LABS: ANION GAP 7 (5-15); CALCIUM 8.6 mg/dL (8.4-11.0); CHLORIDE 99 mmol/L (98-107); GLUCOSE 132 mg/dL (70-99); POTASSIUM 4.1 mmol/L (3.5-5.1); SODIUM SERUM 133 mmol/L (136-145); UREA NITROGEN, BLOOD 21 mg/dL (8-21)
[2016-11-01 08:41] LABS: ALANINE AMINOTRANSFERASE 37 U/L (12-78); ALBUMIN 3.1 g/dL (3.4-4.8); ASPARTATE AMINOTRANSFERASE 23 U/L (10-37); TOTAL BILIRUBIN 0.3 mg/dL (0.0-1.0); TOTAL PROTEIN, SERUM 6.5 g/dL (6.4-8.3)
[2016-11-01 08:55] LABS: BASOPHILS # (AUTO) 0.1 K/uL (0.0-0.2); BASOPHILS % (AUTO) 1.2 % (0.0-2.0); EOSINOPHILS # (AUTO) 0.1 K/uL (0.0-0.4); EOSINOPHILS % (AUTO) 0.9 % (0.0-4.0); HEMATOCRIT 39.5 % (36-54); HEMOGLOBIN 12.8 g/dL (14.0-18.0); LYMPHOCYTES % (AUTO) 12.3 % (20.5-51.5); MEAN CORPUSCULAR HEMOGLOBIN 29 pg (27-31); MEAN CORPUSCULAR HGB CONC 32 % (32-36); MEAN CORPUSCULAR VOLUME 88 fL (79.0-98.0); MONOCYTES # (AUTO) 0.3 K/uL (0.0-1.0); MONOCYTES % (AUTO) 3.4 % (1.7-9.3); NEUTROPHILS # (AUTO) 6.9 K/uL (1.8-7.7); NEUTROPHILS % (AUTO) 82.2 % (40.0-70.0); PLATELET COUNT (AUTO) 94 K/uL (130-430); RED BLOOD CELL COUNT(AUTO) 4.47 MIL/uL (4.2-6.2); RED CELL DISTRIBUTION WIDTH 12.9 % (9.0-15.0); WHITE BLOOD COUNT (AUTO) 8.4 K/uL (4.8-10.8)
[2016-11-01] MEDS: TEARS ARTIFICIAL 15 ML DROPS EACH EYE SCH ×3 (09:00→21:55)
[2016-11-01] MEDS: DOCUSATE SODIUM 100 MG CAPSULE PO SCH ×2 (09:00→21:49)
[2016-11-01] MEDS: LORazepam 1 MG TABLET PO SCH ×3 (09:00→21:47)
[2016-11-01] MEDS ORDERED: NON-FORMULARY MEDICATION (Triamcinolone Acetonide 1 APPLIC) TP SCH (09:00)
--- NOTE | 2016-11-01 09:12 | NUR ---
Nutrition Update Donnie Scale 16 noted. Pt admitted for aspiration pneumonia. Diet: regular, puree BMI: 30.6 kg/m2 RD to follow per nutrition care standards.
[2016-11-01] MEDS: VALSARTAN 160 MG TABLET (DIOVAN) PO SCH (09:38)
[2016-11-01] MEDS: LACTOBACILLUS RHAMNOSUS GG 1 CAP CAPSULE PO SCH ×2 (09:39→21:49)
[2016-11-01] MEDS: FINASTERIDE 5 MG TABLET (PROSCAR) PO SCH (09:39)
[2016-11-01] MEDS: levETIRAcetam 500 MG TABLET PO SCH ×2 (09:39→21:55)
[2016-11-01] MEDS: PROCHLORPERAZINE MALEATE 5 MG TABLET PO SCH (09:40)
[2016-11-01] MEDS: MULTIVITAMINS TAB 1 TABLET PO SCH (09:40)
[2016-11-01] MEDS: THORAZINE (chlorproMAZINE) 25 MG TAB PO SCH ×2 (09:40→21:49)
[2016-11-01] MEDS: CALCIUM CARBONATE/VITAMIN D3 1 TAB TABLET PO SCH (09:40)
--- NOTE | 2016-11-01 10:00 | NUR ---
ROUNDS PT VOIDED, CLEANED AND REPOSITIONED TO OPPOSITE SIDE WITH PILLOW SUPPORT, PT TOLERATED WELL. ALL NEEDS ATTENDED TO, SAFETY MEASURES IN PLACE, BED IN LOW POSITION AND LOCKED, WILL FOLLOW UP
[2016-11-01] MEDS: PANTOPRAZOLE SODIUM 40 MG TAB PO SCH (10:45)
--- NOTE | 2016-11-01 12:18 | NUR ---
Consult Order received for a consult with Dr Amezcua for dysphagia. Spoke with Aixa at the exchange. Will follow up as needed.
[2016-11-01] MEDS ORDERED: HYDROCORTISONE SOD SUCC 100 MG/2 ML VIAL IVP ONE (12:30)
--- NOTE | 2016-11-01 12:30 | NUR ---
DR CAGLE MAKING ROUNDS
--- NOTE | 2016-11-01 12:40 | NUR ---
DR CANDELARIA MAKING ROUNDS, ORDERS NOTED AND CARRIED OUT.
--- NOTE | 2016-11-01 13:01 | NUR ---
DR ROWLEY SW DR MAS RE CONSULT FOR NASOESOPHAGEAL DYSPHAGEA. DR ROWLEY WILL SEE PT IN HIS OFFICE FOR SCOPING. WILL NOTIFY DR CAGLE
[2016-11-01] MEDS: metroNIDAZOLE 500 mg/NS 100 ML IV SCH ×2 (13:53→21:54)
--- NOTE | 2016-11-01 15:00 | NUR ---
ROUNDS PT SITTING UP IN BED, COUGHING, OFFERED WATER, IT SEEMED TO HELP, VSS, NO S/S OF DISTRESS OR COMPLAINT OF PAIN, NEEDS ATTENDED TO, SAFETY MEASURES IN PLACE, CALL LIGHT WITHIN REACH, WILL FOLLOW UP.
[2016-11-01] MEDS: IPRATROPIUM/ALBUTEROL SULFATE 3 ML AMPUL.NEB INH SCH ×3 (15:21→23:13)
--- NOTE | 2016-11-01 17:00 | NUR ---
ROUNDS PT VOIDED, CLEANED AND REPOSITIONED TO OPPOSITE WITH PILLOW SUPPORT, PT TOLERATED WELL. SAFETY MEASURES IN PLACE, BED RETURNED TO LOW POSITION, CALL LIGHT WITHIN REACH, WILL CONTINUE TO MONITOR
--- NOTE | 2016-11-01 19:00 | NUR ---
CLOSING NOTE PT SITTING UP IN BED, AWAKE, NO S/S OF DISTRESS OR COMPLAINT OF PAIN, VSS, IV TO LEFT WRIST INTACT SALINE LOCKED, NO S/S OF INFILTRATION NOTED, ALL NEEDS ATTENDED TO THROUGH OUT SHIFT, SEIZURE AND MEASURES MAINTAINED, NO SEIZURE ACTIVITY NOTED DURING SHIFT, CALL LIGHT WITHIN REACH, BED IN LOW POSITION AND LOCKED, WILL GIVE REPORT TO FOLLOWING SHIFT.
--- NOTE | 2016-11-01 19:20 | NUR ---
INITIAL NOTES Recvd patient in bed a/a/ox2. No c/o pain and no sob noted @ this time. IV noted to L wrist G 20, flushes well, with good blood return. BUE aare strong and BLE are weak, bed rest.Bed in low position with call light within reach. Will continue to monitor.
--- NOTE | 2016-11-01 19:20 | NUR ---
ROUNDS PT IS RESTING IN BED @ THIS TIME. NO C/O PAIN AND NO DISTRESS NOTED. BED IN LOW POSITION, CALL LIGHT WITHIN REACH. WILL CONT TO MONITOR.
[2016-11-01] MEDS: HYDROCORTISONE SOD SUCC 100 MG/2 ML VIAL IVP SCH (21:48)
[2016-11-01] MEDS: TAMSULOSIN HCL 0.4 MG CAP PO SCH (21:49)
[2016-11-01] MEDS: TRIAMCINOLONE ACETONIDE 0.1% 15 GM OINT..GM. TP SCH (21:52)
[2016-11-01] MEDS: LATANOPROST 2.5 ML DROPS (XALATAN) OP SCH (21:53)
--- NOTE | 2016-11-01 23:29 | NUR ---
ROUNDS ASSITED TO TURN IN BED AND EMPTY URINAL. NO S/S OF PAIN AND NO DISTRESS NOTED. BED IN LOW POSITION WITH CALL LIGHT WITHIN REACH; WILL CONT TO MONITOR.
[2016-11-02 00:06] VITALS: BP_SYST 122
--- NOTE | 2016-11-02 01:29 | NUR ---
ROUNDS PT IS RESTING IN BED @ THIS TIME. NO S/S OF PAIN AND NO DISTRESS NOTED. BED IN LOW POSITION WITH CALL LIGHT WITHIN REACH; WILL CONT TO MONITOR.
--- NOTE | 2016-11-02 03:29 | NUR ---
ROUNDS ASSISTED PT TO TURN IN BED. NO S/S OF PAIN AND NO DISTRESS NOTED. BED IN LOW POSITION WITH CALL LIGHT WITHIN REACH; WILL CONT TO MONITOR.
[2016-11-02 03:49] VITALS: BP_SYST 134
[2016-11-02] MEDS: IPRATROPIUM/ALBUTEROL SULFATE 3 ML AMPUL.NEB INH SCH ×4 (04:32→20:04)
[2016-11-02] MEDS: metroNIDAZOLE 500 mg/NS 100 ML IV SCH ×3 (05:01→22:33)
--- NOTE | 2016-11-02 05:29 | NUR ---
ROUNDS ASSISTED PT TO REPOSITION IN BED AND EMPTY URINAL. NO S/S OF PAIN AND NO DISTRESS NOTED. BED IN LOW POSITION WITH CALL LIGHT WITHIN REACH; WILL CONT TO MONITOR.
--- NOTE | 2016-11-02 06:43 | NUR ---
FINAL ROUNDS PT IS RESTING IN BED @ THIS TIME. NO S/S OF PAIN AND NO RESPI DISTRESS NOTED. V/S ARE WNL. ALL NEEDS MET AND ANTICIPATED BY NOC NURSES. BED IN LOW POSITION WITH SIDE RAILS UP X2 FOR SAFETY. CALL LIGHT WITHIN REACH; WILL CONT TO MONITOR.
--- NOTE | 2016-11-02 08:00 | NUR ---
OPENING NOTE: RECEIVED REPORT FROM NIGHT NURSE. PATIENT IS RESTING COMFORTABLY IN BED. NO S/S OF DISTRESS OR SOB. PATIENT IS AWAKE AND ALERT. VITAL SIGNS WNL, ASSESSMENT COMPLETE. PATIENT RECEIVING BREATHING TREATMENT. CALL LIGHT IN REACH, BED IN LOWEST POSITION, AND WILL CONTINUE TO MONITOR.
[2016-11-02 08:16] VITALS: BP_SYST 120
[2016-11-02] MEDS: PROCHLORPERAZINE MALEATE 5 MG TABLET PO SCH (09:00)
[2016-11-02] MEDS: PANTOPRAZOLE SODIUM 40 MG TAB PO SCH (09:29)
[2016-11-02] MEDS: THORAZINE (chlorproMAZINE) 25 MG TAB PO SCH ×2 (09:29→21:05)
[2016-11-02] MEDS: LACTOBACILLUS RHAMNOSUS GG 1 CAP CAPSULE PO SCH ×2 (09:29→21:05)
[2016-11-02] MEDS: FINASTERIDE 5 MG TABLET (PROSCAR) PO SCH (09:29)
[2016-11-02] MEDS: VALSARTAN 160 MG TABLET (DIOVAN) PO SCH (09:29)
[2016-11-02] MEDS: CALCIUM CARBONATE/VITAMIN D3 1 TAB TABLET PO SCH (09:29)
[2016-11-02] MEDS: MULTIVITAMINS TAB 1 TABLET PO SCH (09:29)
[2016-11-02] MEDS: HYDROCORTISONE SOD SUCC 100 MG/2 ML VIAL IVP SCH ×2 (09:30→21:05)
[2016-11-02] MEDS: TEARS ARTIFICIAL 15 ML DROPS EACH EYE SCH ×3 (09:30→21:04)
[2016-11-02] MEDS: LORazepam 1 MG TABLET PO SCH ×2 (09:30→21:06)
[2016-11-02] MEDS: levETIRAcetam 500 MG TABLET PO SCH ×2 (09:30→21:05)
[2016-11-02] MEDS: TRIAMCINOLONE ACETONIDE 0.1% 15 GM OINT..GM. TP SCH ×2 (09:30→21:05)
--- NOTE | 2016-11-02 10:00 | NUR ---
NOTE: PATIENT IS RESTING COMFORTABLY IN BED. NO S/S OF DISTRESS OR SOB. PATIENT IS AWAKE AND ALERT. CALL LIGHT IN REACH, BED IN LOWEST POSITION, AND WILL CONTINUE TO MONITOR.
--- NOTE | 2016-11-02 12:00 | NUR ---
Note: Patient is resting comfortably in bed. No s/s of distress or sob. Patient is awake and alert. Call light in reach, bed in lowest position, and will continue to monitor.
[2016-11-02 12:34] VITALS: BP_SYST 123
--- NOTE | 2016-11-02 14:00 | NUR ---
NOTE: PATIENT IS RESTING COMFORTABLY IN BED. NO S/S OF DISTRESS OR SOB. PATIENT IS ASLEEP. CALL LIGHT IN REACH, BED IN LOWEST POSITION, AND WILL CONTINUE TO MONITOR.
--- NOTE | 2016-11-02 16:00 | NUR ---
Note: Patient is resting comfortably in bed. No s/s of distress or sob. Patient is awake and alert. Family at bedside. Call light in reach, bed in lowest position, and will continue to monitor.
[2016-11-02 16:18] VITALS: BP_SYST 117
--- NOTE | 2016-11-02 18:21 | NUR ---
CLOSING NOTE: PATIENT IS RESTING COMFORTABLY IN BED. NO S/S OF DISTRESS OR SOB. PATIENT IS AWAKE AND ALERT. IV IS PATENT. CALL LIGHT IN REACH, BED IN LOWEST POSITION, AND WILL GIVE REPORT TO NIGHT NURSE.
[2016-11-02 20:00] VITALS: BP_SYST 124
--- NOTE | 2016-11-02 20:00 | NUR ---
STARTING CROP AND SOIL SCIENTIST NOTE Patient in bed resting comfortably. No S/S of any distress or pain noted. Patient appears a little confused. VS within normal limits, fall precautions in place. Report received from the day shift nurse.
[2016-11-02] MEDS: DOCUSATE SODIUM 100 MG CAPSULE PO SCH (21:06)
[2016-11-02] MEDS: TAMSULOSIN HCL 0.4 MG CAP PO SCH (21:06)
[2016-11-02] MEDS: LATANOPROST 2.5 ML DROPS (XALATAN) OP SCH (21:14)
--- NOTE | 2016-11-02 23:03 | NUR ---
NOTE Patient in bed sleeping. The nurse changed his IVF NS 0.9% bag. No S/S of distress noted, no pain. The patient had a small cough for a moment, non-productive. The nurse raised the bed and repositioned him. The cough subsided.
[2016-11-03 00:17] VITALS: BP_SYST 100
--- NOTE | 2016-11-03 00:27 | NUR ---
NOTE Patient in bed sleeping. No S/S of respiratory distress, no cough or pain noted. Fall precautions in place, call light within reach.
--- NOTE | 2016-11-03 02:53 | NUR ---
NOTE Patient in bed sleeping. No pain or any distress noted. Fall precautions in place.
[2016-11-03 04:02] VITALS: BP_SYST 120
[2016-11-03] MEDS: IPRATROPIUM/ALBUTEROL SULFATE 3 ML AMPUL.NEB INH SCH ×5 (04:32→19:59)
--- NOTE | 2016-11-03 04:45 | NUR ---
NOTE Patient in bed sleeping. The nurse emptied the urinal with little amount urine 50mL, clear, yellow, normal appearance. No S/S of any distress noted at the moment, no pain. About half an hour ago the patient had a coughing spell, cough sounded more moist and he was able to cough out few secretions, yellow/cream in appearance. Currently the patient is sleeping. Fall precautions in place.
[2016-11-03] MEDS: metroNIDAZOLE 500 mg/NS 100 ML IV SCH ×3 (05:25→20:56)
--- NOTE | 2016-11-03 06:59 | NUR ---
CLOSING NOTE Patient in bed sleeping. No pain noted. Patient has from time to time coughing spells and the cough now sounds more moist. He is able to cough out some cream-yellowish secretions. Patient's need met throughout the shift. Fall precautions in place.
--- NOTE | 2016-11-03 08:00 | NUR ---
OPENING NOTE: RECEIVED REPORT FROM NIGHT NURSE. PATIENT IS RESTING COMFORTABLY IN BED. NO S/S OF DISTRESS OR SOB. PATIENT IS ALERT AND ORIENTED, VITAL SIGNS WNL, ASSESSMENT COMPLETE. CALL LIGHT IN REACH, BED IN LOWEST POSITION, AND WILL CONTINUE TO MONITOR.
[2016-11-03 08:13] VITALS: BP_SYST 122
[2016-11-03 08:30] LABS: BASOPHILS # (AUTO) 0.1 K/uL (0.0-0.2); BASOPHILS % (AUTO) 0.5 % (0.0-2.0); EOSINOPHILS % (AUTO) 0.2 % (0.0-4.0); HEMATOCRIT 38.6 % (36-54); HEMOGLOBIN 12.7 g/dL (14.0-18.0); LYMPHOCYTES # (AUTO) 2.5 K/uL (1.0-5.5); LYMPHOCYTES % (AUTO) 24.2 % (20.5-51.5); MEAN CORPUSCULAR HEMOGLOBIN 29 pg (27-31); MEAN CORPUSCULAR HGB CONC 33 % (32-36); MEAN CORPUSCULAR VOLUME 87 fL (79.0-98.0); MONOCYTES # (AUTO) 0.7 K/uL (0.0-1.0); MONOCYTES % (AUTO) 6.3 % (1.7-9.3); NEUTROPHILS # (AUTO) 7.2 K/uL (1.8-7.7); NEUTROPHILS % (AUTO) 68.8 % (40.0-70.0); PLATELET COUNT (AUTO) 256 K/uL (130-430); RED BLOOD CELL COUNT(AUTO) 4.42 MIL/uL (4.2-6.2); RED CELL DISTRIBUTION WIDTH 13.5 % (9.0-15.0); WHITE BLOOD COUNT (AUTO) 10.5 K/uL (4.8-10.8)
[2016-11-03 08:39] LABS: ANION GAP 4 (5-15); CALCIUM 8.5 mg/dL (8.4-11.0); CHLORIDE 105 mmol/L (98-107); CREATININE 0.95 mg/dL (0.55-1.30); GLUCOSE 118 mg/dL (70-99); POTASSIUM 3.5 mmol/L (3.5-5.1); SODIUM SERUM 141 mmol/L (136-145); UREA NITROGEN, BLOOD 13 mg/dL (8-21)
[2016-11-03 08:44] LABS: ALANINE AMINOTRANSFERASE 43 U/L (12-78); ALBUMIN 3.1 g/dL (3.4-4.8); ASPARTATE AMINOTRANSFERASE 28 U/L (10-37); TOTAL BILIRUBIN 0.2 mg/dL (0.0-1.0); TOTAL PROTEIN, SERUM 6.7 g/dL (6.4-8.3)
[2016-11-03] MEDS: PANTOPRAZOLE SODIUM 40 MG TAB PO SCH (08:55)
[2016-11-03] MEDS: MULTIVITAMINS TAB 1 TABLET PO SCH (08:55)
[2016-11-03] MEDS: LACTOBACILLUS RHAMNOSUS GG 1 CAP CAPSULE PO SCH ×2 (08:55→20:55)
[2016-11-03] MEDS: LORazepam 1 MG TABLET PO SCH ×2 (08:56→20:56)
[2016-11-03] MEDS: CALCIUM CARBONATE/VITAMIN D3 1 TAB TABLET PO SCH (08:56)
[2016-11-03] MEDS: FINASTERIDE 5 MG TABLET (PROSCAR) PO SCH (08:56)
[2016-11-03] MEDS: THORAZINE (chlorproMAZINE) 25 MG TAB PO SCH ×2 (08:56→20:55)
[2016-11-03] MEDS: levETIRAcetam 500 MG TABLET PO SCH ×2 (08:56→20:56)
[2016-11-03] MEDS: PROCHLORPERAZINE MALEATE 5 MG TABLET PO SCH (08:57)
[2016-11-03] MEDS: VALSARTAN 160 MG TABLET (DIOVAN) PO SCH (08:57)
[2016-11-03] MEDS: HYDROCORTISONE SOD SUCC 100 MG/2 ML VIAL IVP SCH ×2 (08:58→20:54)
[2016-11-03] MEDS: TRIAMCINOLONE ACETONIDE 0.1% 15 GM OINT..GM. TP SCH ×2 (08:58→20:56)
[2016-11-03] MEDS: TEARS ARTIFICIAL 15 ML DROPS EACH EYE SCH ×3 (08:58→20:54)
--- NOTE | 2016-11-03 10:00 | NUR ---
NOTE: PATIENT IS RESTING COMFORTABLY IN BED. NO S/S OF DISTRESS OR SOB. PATIENT IS ALERT AND AWAKE. VISITOR AT BEDSIDE. CALL LIGHT IN REACH, BED IN LOWEST POSITION, AND WILL CONTINUE TO MONITOR.
--- NOTE | 2016-11-03 10:50 | NUR ---
CALLED SPEECH THERAPY CONSULT TO BRAD RODRIGUEZ: VIDEO/CINE SWALLOW. LEFT A VOICE MESSAGE TO COORDINATE WITH RADIOLOGY THE TIME OF THE TEST
--- NOTE | 2016-11-03 12:00 | NUR ---
NOTE: PATIENT IS RESTING COMFORTABLY IN BED. NO S/S OF DISTRESS OR SOB. PATIENT IS ALERT AND AWAKE. CALL LIGHT IN REACH, BED IN LOWEST POSITION, AND WILL CONTINUE TO MONITOR.
[2016-11-03 12:18] VITALS: BP_SYST 130
--- NOTE | 2016-11-03 14:00 | NUR ---
NOTE: PATIENT IS RESTING COMFORTABLY IN BED. NO S/S OF DISTRESS OR SOB. PATIENT IS ALERT AND AWAKE. FAMILY AT BEDSIDE. CALL LIGHT IN REACH, BED IN LOWEST POSITION, AND WILL CONTINUE TO MONITOR.
--- NOTE | 2016-11-03 14:40 | NUR ---
PATIENT IN RADIOLOGY.
--- NOTE | 2016-11-03 14:49 | NUR ---
Dr. Gill Spoke with Dr. Gill regarding clearing patient from contact isolation for normal room in [facility]. He said not yet. Patient can be off contact isolation after 24 hours from last loose stool. Addendum: 11/03/16 at 1451 by Arely James RN IGNORE NOTE. WRONG PATIENT
[2016-11-03] MEDS ORDERED: BARIUM SULFATE 135 ML SUSP.RECON (E-Z-HD) PO ONE (15:02)
--- NOTE | 2016-11-03 15:21 | NUR ---
S.T. VIDEOFLUOROSCOPIC SWALLOW STUDY COMPLETED. PT PRESENTS W/ FUNCTIONAL OROPHARYNGEAL SWALLOW W/ NO RESIDUE OR ASPIRATION. REC: PUREE DIET. NURSE JOVANI NOTIFIED. [id number] CI G8997 CI G8998 CI NOMS LEVEL 6
[2016-11-03 16:04] VITALS: BP_SYST 123
--- NOTE | 2016-11-03 20:00 | NUR ---
Opening Note Report received from Arely DEAL. Patient is in stable condition. Currently resting in bed. Call light is within reach. Instructed to use it whenever in need of assistance. Seizure precautions are in place. IV is on the left wrist 20g, saline locked. SCDS are in place. Patient is alert, however, is mentally challenged. Will continue to monitor.
[2016-11-03 20:18] VITALS: BP_SYST 138
[2016-11-03] MEDS: TAMSULOSIN HCL 0.4 MG CAP PO SCH (20:55)
[2016-11-03] MEDS: LATANOPROST 2.5 ML DROPS (XALATAN) OP SCH (20:55)
[2016-11-03] MEDS: DOCUSATE SODIUM 100 MG CAPSULE PO SCH (20:56)
--- NOTE | 2016-11-03 22:00 | NUR ---
Rounds Patient is resting in bed. Call light is within reach.
[2016-11-04] VITALS (8 sets, daily range): BP systolic 114–151
--- NOTE | 2016-11-04 00:04 | NUR ---
Rounds Patient is resting in bed. No signs of distress noted. Call light is within reach.
[2016-11-04] MEDS: IPRATROPIUM/ALBUTEROL SULFATE 3 ML AMPUL.NEB INH SCH ×6 (00:10→20:31)
--- NOTE | 2016-11-04 02:10 | NUR ---
Rounds Assisted patient with the urinal. Patient is in stable condition. Seizure pads are in place. Call light is within reach.
--- NOTE | 2016-11-04 04:20 | NUR ---
Rounds Patient had a bowel movement. Cleaned him up and turned patient on his side. Call light is within reach.
[2016-11-04] MEDS: metroNIDAZOLE 500 mg/NS 100 ML IV SCH ×3 (06:03→22:31)
--- NOTE | 2016-11-04 06:43 | NUR ---
Closing Note Patient is in stable condition. No signs of distress noted throughout the shift. IV is on the left hand 20g currently running Flagyl @ 100ml/hr. Bed is in low position. Call light is within reach. Seizure pads are in place. Will give report to the oncoming nurse.
--- NOTE | 2016-11-04 09:00 | NUR ---
AM assessment and vital signs complete.
[2016-11-04] MEDS: LACTOBACILLUS RHAMNOSUS GG 1 CAP CAPSULE PO SCH ×2 (09:56→21:06)
[2016-11-04] MEDS: VALSARTAN 160 MG TABLET (DIOVAN) PO SCH (09:56)
[2016-11-04] MEDS: THORAZINE (chlorproMAZINE) 25 MG TAB PO SCH ×2 (09:56→21:07)
[2016-11-04] MEDS: FINASTERIDE 5 MG TABLET (PROSCAR) PO SCH (09:57)
[2016-11-04] MEDS: LORazepam 1 MG TABLET PO SCH ×2 (09:57→21:06)
[2016-11-04] MEDS: levETIRAcetam 500 MG TABLET PO SCH ×2 (09:57→21:08)
[2016-11-04] MEDS: PANTOPRAZOLE SODIUM 40 MG TAB PO SCH ×2 (09:57→21:06)
[2016-11-04] MEDS: PROCHLORPERAZINE MALEATE 5 MG TABLET PO SCH (09:57)
[2016-11-04] MEDS: HYDROCORTISONE SOD SUCC 100 MG/2 ML VIAL IVP SCH ×2 (09:59→21:09)
[2016-11-04] MEDS: MULTIVITAMINS TAB 1 TABLET PO SCH (09:59)
[2016-11-04] MEDS: CALCIUM CARBONATE/VITAMIN D3 1 TAB TABLET PO SCH (09:59)
[2016-11-04] MEDS: TEARS ARTIFICIAL 15 ML DROPS EACH EYE SCH ×3 (09:59→21:09)
[2016-11-04] MEDS: TRIAMCINOLONE ACETONIDE 0.1% 15 GM OINT..GM. TP SCH ×2 (09:59→21:10)
--- NOTE | 2016-11-04 11:00 | NUR ---
OPHTHALMOLOGIST present. Gave complete bedbath and adl care.
--- NOTE | 2016-11-04 13:50 | NUR ---
IV piggyback antibiotic given. Will continue to monitor for needs. Patient watching television.
--- NOTE | 2016-11-04 15:00 | NUR ---
Rounds to patient. IV check for completion of antibiotics. Given artificial tears.
--- NOTE | 2016-11-04 17:00 | NUR ---
Call from charge nurse re: patient coughing during h20 intake. Suggests thickened liquid.
[2016-11-04] MEDS ORDERED: guaiFENesin/D-METHORPHAN HB 118 ML SUGAR FREE PO PRN (18:45)
--- NOTE | 2016-11-04 18:55 | NUR ---
Call to MD for thickened liquid and request of patient for cough syrup.
--- NOTE | 2016-11-04 19:57 | NUR ---
Handoff report for noc nurse at bedside. Patient given prn cough syrup.
--- NOTE | 2016-11-04 20:05 | NUR ---
PM ASSESSMENT: RECEIVED BEDSIDE REPORT FROM SAY SHIN 5HR. PATIENT IN BED AWAKE KNOWS NAME AND PLACE BUT NO SPECIFIC PLACE AT THIS TIME .FORGETFUL OF TIME.SLOW IN ANSWERING QUESTIONS.OBESE.SALINE LOCK IN PLACE.WITH SCD. FOLLOW SIMPLE COMMANDS.INSTRUCTED HOW TO CALL USING CALL LIGHT WHICH IS AT REACH FOR NEEDS.ON BED ALARM /SCD.REGULAR HEART RATE PER PALPATION. WILL MONITOR CLOSELY.
--- NOTE | 2016-11-04 20:10 | NUR ---
HYGIENE/ACTIVITY/INCONTINENCE. BED BATH WITH SKIN CARE GIVEN BY ANA MARIA ARELLANO. REPOSITIONED FOR COMFORT. Z GAURD CREAM APPLIED TO PERINEAL AREA.
[2016-11-04] MEDS: TAMSULOSIN HCL 0.4 MG CAP PO SCH (21:06)
[2016-11-04] MEDS: DOCUSATE SODIUM 100 MG CAPSULE PO SCH (21:06)
[2016-11-04] MEDS: LATANOPROST 2.5 ML DROPS (XALATAN) OP SCH (21:08)
--- NOTE | 2016-11-04 21:40 | NUR ---
IRON AND STEEL WORK SUPERVISOR/ELIMINATION: DUE MEDS CRUSHED ,MIXED WITH APPLE SAUCE GIVEN WITH OUT PROBLEM. THICKENED WATER GIVEN .ASPIRATION PRECAUTION IN PROCESS. PATIENT ASKED FOR BED GOLDSTEIN. HAD MOD, SOFT STOOL. GRETCHEN CARE DONE.
--- NOTE | 2016-11-04 23:00 | NUR ---
HYGIENE: GRETCHEN CARE DONE DUE TO URINE INCONTINENCE.
--- NOTE | 2016-11-05 02:00 | NUR ---
ROUNDS: REPOSITION FOR COMFORT. NO DISTRESS.
[2016-11-05] MEDS: IPRATROPIUM/ALBUTEROL SULFATE 3 ML AMPUL.NEB INH SCH ×4 (03:44→11:00)
--- NOTE | 2016-11-05 04:05 | NUR ---
ROUNDS: VITAL SIGNS TAKEN .STABLE. NO DISTRESS.
[2016-11-05 04:15] VITALS: BP_SYST 115
--- NOTE | 2016-11-05 05:35 | NUR ---
DUE IVPB INFUSED. SLEEPY,OPENS EYES WHEN CALLED.
[2016-11-05] MEDS: metroNIDAZOLE 500 mg/NS 100 ML IV SCH (05:53)
--- NOTE | 2016-11-05 06:40 | NUR ---
CLOSING: NO ACUTE CARDIOPULMONARY DISTRESS WHOLE SHIFT. SLEPT AT LONG INTERVALS. TURNED TO SIDES. GRETCHEN CARE DONE. CALL LIGHT WITHIN REACH AT ALL TIMES. ALL NEEDS WERE ATTENDED. ALL DUE MEDS GIVEN.
--- NOTE | 2016-11-05 07:30 | NUR ---
AM ROUNDS RECEIVED PT UP IN BED. AWAKE AND ORIENTED. BREATHING IS EVEN AND UNLABORED ON 3L/MIN. NO ACUTE DISTRESS. FULL ASSESSMENT COMPLETED. VSS. POC DISCUSSED. PT VERBALIZED UNDERSTANDING. RD OF CALL LIGHT NOTED. ENCOURAGED PT CALL ME WITH ANY NEEDS. Addendum: 11/05/16 at 1133 by Rita Bradford RN ON RA
[2016-11-05 08:00] VITALS: BP_SYST 125
--- NOTE | 2016-11-05 09:00 | NUR ---
AM ROUNDS ADMIN AM MEDS ORDERED. PT YAMIL PEREZ
[2016-11-05] MEDS: PANTOPRAZOLE SODIUM 40 MG TAB PO SCH (09:31)
[2016-11-05] MEDS: levETIRAcetam 500 MG TABLET PO SCH (09:32)
[2016-11-05] MEDS: FINASTERIDE 5 MG TABLET (PROSCAR) PO SCH (09:32)
[2016-11-05] MEDS: LORazepam 1 MG TABLET PO SCH (09:32)
[2016-11-05] MEDS: LACTOBACILLUS RHAMNOSUS GG 1 CAP CAPSULE PO SCH (09:32)
[2016-11-05] MEDS: MULTIVITAMINS TAB 1 TABLET PO SCH (09:32)
[2016-11-05] MEDS: CALCIUM CARBONATE/VITAMIN D3 1 TAB TABLET PO SCH (09:32)
[2016-11-05] MEDS: HYDROCORTISONE SOD SUCC 100 MG/2 ML VIAL IVP SCH (09:33)
[2016-11-05] MEDS: VALSARTAN 160 MG TABLET (DIOVAN) PO SCH (09:33)
[2016-11-05] MEDS: TEARS ARTIFICIAL 15 ML DROPS EACH EYE SCH (09:33)
[2016-11-05] MEDS: THORAZINE (chlorproMAZINE) 25 MG TAB PO SCH (09:34)
[2016-11-05] MEDS: PROCHLORPERAZINE MALEATE 5 MG TABLET PO SCH (09:34)
[2016-11-05] MEDS: TRIAMCINOLONE ACETONIDE 0.1% 15 GM OINT..GM. TP SCH (09:34)
[2016-11-05 12:41] VITALS: BP_SYST 120
[2016-11-05] MEDS ORDERED: AMOX-426 PO (12:53)
--- NOTE | 2016-11-05 13:00 | NUR ---
RN ROUNDS ADMIN AFTERNOON MEDS, IVATB. NO A/R NOTED. PT YAMIL WELL.
--- NOTE | 2016-11-05 14:16 | NUR ---
D/C Patient Patient given medication reconciliation form and D/C instructions. Exit Care provided. Patient verbalized understanding. MD discussed with patient the results and treatment provided. Ambulatory with steady gait for discharge to home. Patient in stable condition, ID band removed. IV catheter removed, intact and dressing applied, no active bleeding. Rx of AUGMENTIN given. Patient educated on pain management. All belongings sent with patient.
--- NOTE | 2016-11-08 12:04 | NUR ---
Discharge Follow Up Phone Call: REPAIR DEPARTMENT SUPERVISOR called pt's residence, [facility] ([phone]), and spoke with the Director, Beka Hanson. Beka states that pt is doing well; pt's prescriptions have been filled; there are no questions regarding discharge or medication instructions; pt attended PCP follow up appointment with Dr. Wood on 11-06-16. Beka did not express any other needs or concerns and denied the need for additional follow up at this time. No further follow up phone calls required at this time.
== END 2016-11-05 14:15 | disposition home or self-care (01) | DRG 179 ==
LOC: SED 16:54 → SMU 19:05
PROVIDERS: ADMIT Internal Medicine; ATTEND Internal Medicine
DX: J69.0 Pneumonitis due to inhalation of food and vomit (principal); M19.90 Unspecified osteoarthritis, unspecified site; G80.9 Cerebral palsy, unspecified; I10 Essential (primary) hypertension; G40.909 Epilepsy, unspecified, not intractable, without status epilepticus; N40.0 Benign prostatic hyperplasia without lower urinary tract symptoms; F29 Unspecified psychosis not due to a substance or known physiological condition; D69.6 Thrombocytopenia, unspecified; F03.90 Unspecified dementia, unspecified severity, without behavioral disturbance, psychotic disturbance, mood disturbance, and anxiety; R06.81 Apnea, not elsewhere classified; R53.81 Other malaise; K44.9 Diaphragmatic hernia without obstruction or gangrene; J40 Bronchitis, not specified as acute or chronic
CPT/HCPCS: 36415; 71010; 71250-TC; 74230; 80053; 83605; 83880; 84484; 85025; 85379; 85610-TC; 85651-TC; 85730-TC; 87040-TC; 87081; 92611-GN; 93005; 94640; 94760; 96365; 96375; 99285; J0696; J1720; J2543; J2930; J3490; J7040; J7050; J7060; Q0161; Q0164

== ENCOUNTER 2016-12-20 00:22 | Emergency (ER) | payer OTHER, MEDICAID ==
[2016-10-13 11:57] VITALS: Ht 152.4 cm; Wt 75.7 kg
[~2016-12-20] VITALS: Ht 152.4 cm; Wt 75.7 kg
[~2016-12-20 00:22] MED LIST changes: +AMOX-426 PO
--- NOTE | 2016-12-20 00:22 | NUR ---
Patient to ER bed 3 to gown for evaluation. Side rails up. Report given to SAY Miguel.
[2016-12-20] MEDS ORDERED: NACL 0.9% 1,000 ML IV ONE (00:25)
--- NOTE | 2016-12-20 00:30 | NUR ---
Patient arrived via BLS from [facility]. EMS states patient has been having diarrhea x 3 episodes today with on bowel movement of bright red blood. Patient confirmed report. Patient states that he has not urinated since 1430 yesterday. Patient also complains of generalized abdominal pain starting today with no nausea or vomiting. Abdomen is soft and round. Pain of 4/10. No other complaints/injuries per patient or as noted.
--- NOTE | 2016-12-20 00:32 | NUR ---
Dr. Philip at bedside.
[2016-12-20 00:52] VITALS: BP 124/73; PULSE 88; RESP 17; TEMP 97.9; O2SAT 99
[2016-12-20 01:04] LABS: HEMATOCRIT 43.9 % (36-54); HEMOGLOBIN 14.3 g/dL (14.0-18.0); MEAN CORPUSCULAR HEMOGLOBIN 29 pg (27-31); MEAN CORPUSCULAR HGB CONC 33 % (32-36); MEAN CORPUSCULAR VOLUME 88 fL (79.0-98.0); PLATELET COUNT (AUTO) 120 K/uL (130-430); RED BLOOD CELL COUNT(AUTO) 4.98 MIL/uL (4.2-6.2); RED CELL DISTRIBUTION WIDTH 13.5 % (9.0-15.0); WHITE BLOOD COUNT (AUTO) 14.6 K/uL (4.8-10.8)
[2016-12-20 01:06] LABS: BILIRUBIN,URINE NEGATIVE (NEGATIVE); BLOOD, URINE 2+ (NEGATIVE); CLARITY/URINE HAZY (CLEAR); COLOR,URINE YELLOW (YELLOW); GLUCOSE,URINE NEGATIVE (NEGATIVE); KETONES,URINE NEGATIVE (NEGATIVE); LEUKOCYTE ESTERASE ,URINE 1+ (NEGATIVE); NITRITE, URINE NEGATIVE (NEGATIVE); PROTEIN URINE TRACE (NEGATIVE); UROBILINOGEN,URINE 0.2 (0.2-1.0)
[2016-12-20 01:13] LABS: ANION GAP 7 (5-15); CHLORIDE 100 mmol/L (98-107); CREATININE 1.25 mg/dL (0.55-1.30); GLUCOSE 108 mg/dL (70-99); POTASSIUM 4.2 mmol/L (3.5-5.1); SODIUM SERUM 134 mmol/L (136-145); UREA NITROGEN, BLOOD 19 mg/dL (8-21)
[2016-12-20 01:17] LABS: INR 1.1 (0.80-1.20); PROTHROMBIN TIME 11.5 SECS (9.5-12.5)
[2016-12-20 01:18] LABS: ALANINE AMINOTRANSFERASE 26 U/L (12-78); ALBUMIN 3.6 g/dL (3.4-4.8); AMYLASE 68 U/L (0-100); ASPARTATE AMINOTRANSFERASE 22 U/L (10-37); LIPASE 90 U/L (73-393); TOTAL BILIRUBIN 0.5 mg/dL (0.0-1.0); TOTAL PROTEIN, SERUM 7.7 g/dL (6.4-8.3)
[2016-12-20 01:19] LABS: BACTERIA,URINE MODERATE /HPF (None Seen); MUCUS,URINE None Seen /LPF (None Seen); RBC,URINE 0-3 /HPF (0-3); WBC,URINE >100 /HPF (0-3)
[2016-12-20 01:28] LABS: LYMPHOCYTES % (MANUAL) 17 % (20-46); MONOCYTES % (MANUAL) 5 % (0-11)
[2016-12-20 01:29] LABS: BASOPHILS % (MANUAL) 0 % (0-2); EOSINOPHILS % (MANUAL) 3 % (0-7)
[2016-12-20] MEDS ORDERED: metroNIDAZOLE 500 mg/NS 100 ML IV ONE (02:00)
[2016-12-20] MEDS ORDERED: cefTRIAXone 1 GM VIAL ONE (02:11)
[2016-12-20] MEDS ORDERED: cefTRIAXone 2 GM VIAL ONE (02:12)
[2016-12-20 04:20] VITALS: BP 132/76; PULSE 72; RESP 16; TEMP 98.2; O2SAT 96
--- NOTE | 2016-12-20 04:20 | NUR ---
Patient given written and verbal discharge instructions and verbalizes understanding. ER MD discussed with patient the results and treatment provided. Patient in stable condition. ID arm band removed. IV catheter removed intact and dressing applied, no active bleeding. Rx of Levaquin and Lomotil given. Patient educated on pain management and to follow up with PMD in 48 hours. Pain Scale 0/10 Opportunity for questions provided and answered.
== END 2016-12-20 04:20 | disposition home or self-care (01) ==
LOC: SED 00:22
DX: N39.0 Urinary tract infection, site not specified (principal); R19.7 Diarrhea, unspecified; Z91.02 Food additives allergy status; Z91.011 Allergy to milk products; J45.909 Unspecified asthma, uncomplicated; G80.9 Cerebral palsy, unspecified; Z79.899 Other long term (current) drug therapy; G82.20 Paraplegia, unspecified
CPT/HCPCS: 36415; 80053; 81000; 82150; 83690; 85007; 85027; 85610; 85730; 87086; 89055; 96361; 96365; 96367; 99284; J0696; J3490; J7030; J7060

== ENCOUNTER 2017-03-15 12:26 | Emergency (ER) | payer OTHER, MEDICAID ==
[~2017-03-15] VITALS: Ht 167.6 cm; Wt 90.7 kg
[~2017-03-15 12:26] MED LIST changes: +ALLO300T2 PO; -AMOX-426 PO; +ATEN-41 PO; +BENA20TA2 PO; +BISA5TAB10 PO; +CIPR-211 PO; +CLON1TAB4 PO; +ESCI10TA PO; +ESOM20CA PO; +FLUT1DIS INH; +FURO-149 PO; +LATA2.5D6 OP; +METR500T PO; +OMEP40CA33 PO; +POTA20TA83 PO; +PRAV10TA PO; -SULF1TAB48 PO; +VALS320T10 PO
[2017-03-15 12:27] VITALS: BP_SYST 125
[2017-03-15 14:17] LABS: BILIRUBIN,URINE NEGATIVE (NEGATIVE); BLOOD, URINE 1+ (NEGATIVE); CLARITY/URINE CLEAR (CLEAR); COLOR,URINE YELLOW (YELLOW); GLUCOSE,URINE NEGATIVE (NEGATIVE); KETONES,URINE NEGATIVE (NEGATIVE); LEUKOCYTE ESTERASE ,URINE NEGATIVE (NEGATIVE); NITRITE, URINE NEGATIVE (NEGATIVE); PROTEIN URINE NEGATIVE (NEGATIVE); UROBILINOGEN,URINE 0.2 (0.2-1.0)
[2017-03-15 14:20] LABS: BACTERIA,URINE RARE /HPF (None Seen); MUCUS,URINE None Seen /LPF (None Seen); RBC,URINE 0-3 /HPF (0-3); WBC,URINE NONE SEEN /HPF (0-3)
[2017-03-15 14:52] VITALS: BP_SYST 125
== END 2017-03-15 14:59 | disposition home or self-care (01) ==
LOC: SED 12:26
DX: K65.4 Sclerosing mesenteritis (principal)
CPT/HCPCS: 81000-TC; 99283

== ENCOUNTER 2019-11-26 11:00 | Emergency (ER) | payer OTHER, MEDICAID ==
[~2019-11-26] VITALS: Ht 152.4 cm; Wt 79.4 kg
[~2019-11-26 11:00] MED LIST changes: -BENA20TA2 PO; +BENA20TA9 PO; -CALC-226 PO; +CALC-823 PO; +CLON1TAB12 PO; -CLON1TAB4 PO; -LANS30CA10 PO; +LANS30CA53 PO; -LATA2.5D6 OP; -LEVE500T13 PO; +LEVE500T9 PO; -PROC5TAB PO; +PROC5TAB12 PO; +SOLI5TAB2 PO; -SOLI5TAB6 PO; -VALS320T10 PO; +VALS320T2 PO; +XALEYE OP
[2019-11-26] MEDS ORDERED: NACL 0.9% 1,000 ML IV ONE (11:19)
[2019-11-26 11:41] VITALS: BP_SYST 122
--- NOTE | 2019-11-26 11:41 | NUR ---
Patient to ER bed 6 to gown for evaluation. Side rails up.
--- NOTE | 2019-11-26 11:45 | NUR ---
Pt brought to ER via BLS after falling out of wheelchair, complaints of L arm pain and RUQ abd pain. Pt resting in gurney, VSS nodistress noted at this time.
--- NOTE | 2019-11-26 11:50 | NUR ---
ER at bedside examining patient.
[2019-11-26 12:00] LABS: BILIRUBIN,URINE NEGATIVE (NEGATIVE); CLARITY/URINE CLOUDY (CLEAR); COLOR,URINE YELLOW (YELLOW); GLUCOSE,URINE NEGATIVE (NEGATIVE); KETONES,URINE TRACE (NEGATIVE); LEUKOCYTE ESTERASE ,URINE 1+ (NEGATIVE); NITRITE, URINE NEGATIVE (NEGATIVE); PROTEIN URINE 1+ (NEGATIVE); UROBILINOGEN,URINE 0.2 (0.2-1.0)
[2019-11-26 12:01] LABS: BLOOD, URINE TRACE (NEGATIVE)
[2019-11-26 12:07] LABS: RBC,URINE 0-3 /HPF (0-3)
[2019-11-26 12:08] LABS: BACTERIA,URINE MANY /HPF (None Seen)
[2019-11-26 12:09] LABS: YEAST,URINE None Seen /HPF (None Seen)
[2019-11-26 12:10] LABS: CALCIUM OXALATE CRYSTALS,UR None Seen /HPF (None Seen); CALCIUM PHOSPHATE CRYSTALS,UR None Seen /HPF (None Seen); COARSE GRANULAR CASTS,URINE None Seen /LPF (None Seen); FINE GRANULAR CASTS,URINE None Seen /LPF (None Seen); HYALINE CASTS, URINE None Seen /LPF (None Seen); MUCUS,URINE 1+ /LPF (None Seen); OTHER CASTS, URINE None Seen /LPF (None Seen); OTHER CRYSTALS,URINE None Seen /HPF (None Seen); TRICHOMONAS,URINE None Seen /HPF (None Seen); TRIPLE PHOSPHATE CRYSTAL,UR None Seen /HPF (None Seen); URIC ACID CRYSTALS,URINE None Seen /HPF (None Seen); URINE AMORPHOUS PHOSPHATES None Seen /HPF (None Seen); URINE AMORPHOUS URATE None Seen /HPF (None Seen); WAXY CASTS,URINE None Seen /LPF (None Seen)
--- NOTE | 2019-11-26 12:16 | NUR ---
Call received from Maryuri of sending facility. Phone number is [phone].
[2019-11-26 12:33] LABS: BASOPHILS % (AUTO) 0.3 % (0.0-2.0); EOSINOPHILS % (AUTO) 0.1 % (0.0-4.0); HEMATOCRIT 41.4 % (36-54); HEMOGLOBIN 13.8 g/dL (14.0-18.0); LYMPHOCYTES # (AUTO) 0.6 K/uL (1.0-5.5); LYMPHOCYTES % (AUTO) 4.3 % (20.5-51.5); MEAN CORPUSCULAR HEMOGLOBIN 30 pg (27-31); MEAN CORPUSCULAR HGB CONC 33 % (32-36); MEAN CORPUSCULAR VOLUME 89 fL (79.0-98.0); MONOCYTES # (AUTO) 0.9 K/uL (0.0-1.0); MONOCYTES % (AUTO) 6.8 % (1.7-9.3); NEUTROPHILS # (AUTO) 11.8 K/uL (1.8-7.7); NEUTROPHILS % (AUTO) 88.5 % (40.0-70.0); PLATELET COUNT (AUTO) 220 K/uL (130-430); RED BLOOD CELL COUNT(AUTO) 4.65 MIL/uL (4.2-6.2); RED CELL DISTRIBUTION WIDTH 13.4 % (9.0-15.0); WHITE BLOOD COUNT (AUTO) 13.3 K/uL (4.8-10.8)
[2019-11-26 12:34] LABS: ANION GAP 7 (5-15); CALCIUM 8.8 mg/dL (8.4-11.0); CHLORIDE 99 mmol/L (98-107); CREATININE 0.77 mg/dL (0.55-1.30); GLUCOSE 122 mg/dL (70-99); POTASSIUM 3.6 mmol/L (3.5-5.1); SODIUM SERUM 134 mmol/L (136-145); UREA NITROGEN, BLOOD 7 mg/dL (8-21)
[2019-11-26 12:40] LABS: ALANINE AMINOTRANSFERASE 27 U/L (12-78); ALBUMIN 3.4 g/dL (3.4-4.8); ASPARTATE AMINOTRANSFERASE 25 U/L (10-37); LIPASE 62 U/L (73-393); TOTAL BILIRUBIN 0.6 mg/dL (0.0-1.0)
[2019-11-26] MEDS ORDERED: MORPHINE 4 MG/ML INJ. SYRINGE IVP ONE (12:45)
[2019-11-26] MEDS ORDERED: MORPHINE 4 MG/ML INJ. SYRINGE IM ONE (13:15)
--- NOTE | 2019-11-26 13:40 | NUR ---
Attempted to call facility to give report on pt, no answer at this time. S transport set to arrive at 1400.
--- NOTE | 2019-11-26 13:47 | NUR ---
Spoke with caregiver Maryuri to give report on patient return status.
[2019-11-26 13:58] VITALS: BP_SYST 127
--- NOTE | 2019-11-26 13:58 | NUR ---
Patient given written and verbal discharge instructions and verbalizes understanding. ER MD discussed with patient the results and treatment provided. Patient in stable condition. ID arm band removed. IV catheter removed intact and dressing applied, no active bleeding. Rx of Carafate, Cipro, [facility] given. Patient educated on pain management and to follow up with PMD. Pain Scale 0/10. Opportunity for questions provided and answered. Medication side effect fact sheet provided.
== END 2019-11-26 13:58 | disposition home or self-care (01) ==
LOC: SED 11:00
DX: N39.0 Urinary tract infection, site not specified (principal); R10.13 Epigastric pain; J44.9 Chronic obstructive pulmonary disease, unspecified; Z79.899 Other long term (current) drug therapy; Z88.0 Allergy status to penicillin; Z91.018 Allergy to other foods
CPT/HCPCS: 36415; 80053; 81000-TC; 83690-TC; 85025; 87086; 96372; 99284; J2270

== ENCOUNTER 2022-07-03 12:35 | Emergency (ER) | payer OTHER, MEDICAID ==
[~2022-07-03] VITALS: Ht 152.4 cm; Wt 79.4 kg
[~2022-07-03 12:35] MED LIST changes: +BENA-6 PO; -BENA20TA9 PO; +BISA-140 PO; -BISA5TAB10 PO; -CIPR-211 PO; +CIPR500T5 PO; +OMEP40CA20 PO; -OMEP40CA33 PO; +POTA-197 PO; -POTA20TA83 PO
[2022-07-03 12:52] VITALS: BP_SYST 126
--- NOTE | 2022-07-03 13:05 | NUR ---
MD SIMON IN TRIAGE FOR MSE
--- NOTE | 2022-07-03 14:13 | NUR ---
URINE SENT TO LAB.
[2022-07-03 14:36] LABS: BILIRUBIN,URINE NEGATIVE (NEGATIVE); BLOOD, URINE NEGATIVE (NEGATIVE); CLARITY/URINE CLEAR (CLEAR); COLOR,URINE YELLOW (YELLOW); GLUCOSE,URINE NEGATIVE (NEGATIVE); KETONES,URINE NEGATIVE (NEGATIVE); LEUKOCYTE ESTERASE ,URINE NEGATIVE (NEGATIVE); NITRITE, URINE NEGATIVE (NEGATIVE); PROTEIN URINE NEGATIVE (NEGATIVE); UROBILINOGEN,URINE 0.2 (0.2-1.0)
[2022-07-03 16:14] VITALS: BP_SYST 121
--- NOTE | 2022-07-03 16:14 | NUR ---
Patient given written and verbal discharge instructions and verbalizes understanding. ER MD discussed with patient the results and treatment provided. Patient in stable condition. ID arm band removed. IV catheter removed intact and dressing applied, no active bleeding. Rx of N/A given. Patient educated on pain management and to follow up with PMD. Pain Scale 0/10. Opportunity for questions provided and answered. Medication side effect fact sheet provided.
== END 2022-07-03 16:14 ==
LOC: SED 12:35
DX: N39.0 Urinary tract infection, site not specified (principal); F79 Unspecified intellectual disabilities; G80.9 Cerebral palsy, unspecified; J44.9 Chronic obstructive pulmonary disease, unspecified; Z88.0 Allergy status to penicillin; Z91.018 Allergy to other foods; Z79.899 Other long term (current) drug therapy
CPT/HCPCS: 81003; 99283